=== PATIENT | male | born 1945 | race Caucasian/White ===

== ENCOUNTER 2016-08-08 18:04 | Inpatient (IN) | payer OTHER ==
[2016-08-08] MEDS ORDERED: NS 1,000 ML IV ONE ×2 (18:13→19:16)
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
[2016-08-08 18:47] LABS: % IMMATURE GRANULYOCYTES 2.6 % (0.0-1.1); ABSOLUTE IMMATURE GRANULOCYTES 0.24 10^3/uL (0.00-0.10); ADD DIFF? NO; ADD MORPH? NO; ADD SCAN? NO; ATYPICAL LYMPHOCYTE FLAG 0 (0-99); FRAGMENT RBC FLAG 0 (0-99); HEMATOCRIT 40.3 % (40.0-51.0); HEMOGLOBIN 13.5 g/dL (13.7-17.5); LEFT SHIFT FLG 20 (0-99); LIPEMIA HEMOLYSIS FLAG 80 (0-99); MEAN CELL HEMOGLOBIN 30.5 pg (27.9-34.1); MEAN CELL HEMOGLOBIN CONCENTR. 33.5 g/dL (32.4-36.7); MEAN PLATELET VOLUME 10.1 fL (8.7-11.7); PLATELET CLUMPS FLAG 0 (0-99); PLATELET COUNT 208 10^3/uL (150-400); RED BLOOD CELL COUNT 4.43 10^6/uL (4.40-6.38); RED CELL DISTRIBUTION WIDTH 13.1 % (11.5-15.2)
[2016-08-08 19:02] LABS: INR 0.99 (0.83-1.16)
[2016-08-08 19:03] LABS: APTT 27.8 SEC (23.0-38.0)
[2016-08-08 19:13] LABS: ANION GAP 6 mEq/L (8-16); CALCIUM 9.4 mg/dL (8.5-10.4); CARBON DIOXIDE 25 mEq/l (22-31); CHLORIDE 100 mEq/L (97-110); CREATININE 1.6 mg/dL (0.7-1.3); GLOMERULAR FILTRATION RATE 43; GLUCOSE 169 mg/dL (70-100); POTASSIUM 4.5 mEq/L (3.5-5.2); SODIUM 131 mEq/L (134-144)
[2016-08-08] MEDS ORDERED: fentaNYL 100 MCG/2 ML INJ ONE ×2 (19:48→21:40)
[2016-08-08] MEDS ORDERED: fentaNYL 100 MCG/2 ML INJ IVP ONE ×3 (19:56→21:59)
[2016-08-08] MEDS ORDERED: MIDAZOLAM 2 MG/2 ML VIAL ONE (21:25)
[2016-08-08] MEDS ORDERED: MIDAZOLAM 2 MG/2 ML VIAL IVP ONE (21:38)
[2016-08-08] MEDS ORDERED: ONDANSETRON 4 MG/2 ML VIAL IVP PRN (22:06)
[2016-08-08] MEDS ORDERED: ZOLPIDEM TARTRATE 5 MG TAB PO PRN (22:06)
[2016-08-08] MEDS ORDERED: ONDANSETRON DISINTEGRATING 4 MG TAB PO PRN (22:06)
[2016-08-08] MEDS ORDERED: ACETAMINOPHEN 325 MG TAB PO PRN (22:06)
[2016-08-08] MEDS ORDERED: Cevimeline Hcl [Evoxac] 30 MG PO PRN (22:19)
[2016-08-08] MEDS ORDERED: NALOXONE HCL 0.4 MG/ML INJ IVP PRN (22:19)
[2016-08-08] MEDS ORDERED: LR 1,000 ML IV SCH (22:30)
[2016-08-08] MEDS: HYDROmorphONE/DILAUDID 6 MG/30 ML PCA IV PRN (22:53)
[2016-08-08] MEDS: OXYCODONE/APAP 5/325 TAB PO PRN (22:53)
[2016-08-08] MEDS: KETOROLAC 15 MG/1 ML SDV IVP SCH (23:00)
[2016-08-08] MEDS ORDERED: D50W 25 GM/50 ML SYR IVP PRN (23:00)
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
[2016-08-08] MEDS: DIAZEPAM 5 MG TAB PO PRN (23:33)
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
[2016-08-09 04:23] LABS: % IMMATURE GRANULYOCYTES 0.7 % (0.0-1.1); ABSOLUTE IMMATURE GRANULOCYTES 0.09 10^3/uL (0.00-0.10); ADD DIFF? NO; ADD MORPH? NO; ADD SCAN? NO; ATYPICAL LYMPHOCYTE FLAG 0 (0-99); FRAGMENT RBC FLAG 0 (0-99); HEMATOCRIT 34.3 % (40.0-51.0); HEMOGLOBIN 11.3 g/dL (13.7-17.5); LEFT SHIFT FLG 10 (0-99); LIPEMIA HEMOLYSIS FLAG 80 (0-99); MEAN CELL HEMOGLOBIN 30.4 pg (27.9-34.1); MEAN CELL HEMOGLOBIN CONCENTR. 32.9 g/dL (32.4-36.7); MEAN CELL VOLUME 92.2 fL (81.5-99.8); MEAN PLATELET VOLUME 9.8 fL (8.7-11.7); PLATELET CLUMPS FLAG 10 (0-99); PLATELET COUNT 181 10^3/uL (150-400); RED BLOOD CELL COUNT 3.72 10^6/uL (4.40-6.38); RED CELL DISTRIBUTION WIDTH 13.3 % (11.5-15.2)
--- NOTE | 2016-08-09 04:24 | GOP ---
[f rep st] OPERATIVE REPORT DATE OF OPERATION: SURGEON: Luis Carlos Foley MD PREOPERATIVE DIAGNOSIS: Right pneumothorax and multiple right rib fractures. POSTOPERATIVE DIAGNOSIS: Right pneumothorax and multiple right rib fractures. PROCEDURE PERFORMED: Right tube thoracostomy with IV sedation. FINDINGS: DESCRIPTION OF PROCEDURE: The patient was consented. Appropriate time-out was done. He was preppe d and draped in usual sterile fashion using IV sedation with Versed and fentanyl. He was anesthetiz ed with 1% Xylocaine over the 6th intercostal space in the anterior axillary line. A short incision was made. Using blunt dissection, the 6th intercostal space was entered. This was done with 1% Xy locaine local infiltration. A #28-Vietnamese chest tube was introduced, after having released the pneum othorax. There was only a minimal amount of blood in the chest, approximately 50 cc. Chest tube wa s secured at the exit site with a 2-0 silk suture and connected to a Pleur-Evac drainage system. He tolerated the procedure reasonably well. There were no complications. He was taken to the recover y room in good condition. /[id number]/MODL
[2016-08-09 04:46] LABS: ANION GAP 5 mEq/L (8-16); CALCIUM 8.4 mg/dL (8.5-10.4); CARBON DIOXIDE 24 mEq/l (22-31); CHLORIDE 105 mEq/L (97-110); CREATININE 1.5 mg/dL (0.7-1.3); GLOMERULAR FILTRATION RATE 46; GLUCOSE 142 mg/dL (70-100); SODIUM 134 mEq/L (134-144)
[2016-08-09] MEDS: KETOROLAC 15 MG/1 ML SDV IVP SCH (05:35)
[2016-08-09] MEDS: DIAZEPAM 5 MG TAB PO PRN ×2 (06:07→20:18)
[2016-08-09] MEDS: OXYCODONE/APAP 5/325 TAB PO PRN ×2 (06:07→20:15)
[2016-08-09] MEDS ORDERED: INSULIN PUMP, PATIENT OWN 1 EA MISC SCH ×2 (07:45→10:00)
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
--- NOTE | 2016-08-09 08:36 | CPEKG ---
Heart Rate: 71 RR Interval: 845 P-R Interval: 304 QRSD Interval: 92 QT Interval: 328 QTC Interval: 357 P [place]: 36 QRS [place]: -24 T Wave [place]: 11 EKG Severity - ABNORMAL ECG - EKG Impression: SINUS RHYTHM EKG Impression: FIRST DEGREE AV BLOCK EKG Impression: BORDERLINE T WAVE ABNORMALITIES Electronically Signed By: Jagjit Swanson 09-Aug-2016 16:51:39
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
[2016-08-09 09:51] LABS: HEMOGLOBIN A1C 7.1 % (4.0-6.0)
[2016-08-09] MEDS ORDERED: HUMALOG PUMP SC PRN (10:00)
[2016-08-09] MEDS: MULTIVITAMINS 1 EACH TAB PO SCH (10:55)
[2016-08-09] MEDS: ENOXAPARIN 40 MG/0.4 ML SYR SC SCH (10:55)
[2016-08-09] MEDS: ASPIRIN/DIPYRIDAMOLE CAPSULE PO SCH ×2 (10:55→20:17)
[2016-08-09 14:12] LABS: % IMMATURE GRANULYOCYTES 0.6 % (0.0-1.1); ABSOLUTE IMMATURE GRANULOCYTES 0.08 10^3/uL (0.00-0.10); ADD DIFF? NO; ADD MORPH? NO; ADD SCAN? NO; ATYPICAL LYMPHOCYTE FLAG 0 (0-99); FRAGMENT RBC FLAG 0 (0-99); HEMATOCRIT 35.8 % (40.0-51.0); HEMOGLOBIN 11.6 g/dL (13.7-17.5); LEFT SHIFT FLG 10 (0-99); LIPEMIA HEMOLYSIS FLAG 80 (0-99); MEAN CELL HEMOGLOBIN 30.7 pg (27.9-34.1); MEAN CELL HEMOGLOBIN CONCENTR. 32.4 g/dL (32.4-36.7); MEAN CELL VOLUME 94.7 fL (81.5-99.8); PLATELET CLUMPS FLAG 10 (0-99); PLATELET COUNT 162 10^3/uL (150-400); RED BLOOD CELL COUNT 3.78 10^6/uL (4.40-6.38); RED CELL DISTRIBUTION WIDTH 13.6 % (11.5-15.2)
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
[2016-08-09 14:57] LABS: COLOR YELLOW; LEUKOCYTE ESTERASE,URINE NEGATIVE (NEGATIVE); NITRITE,URINE NEGATIVE (NEGATIVE)
[2016-08-09] MEDS ORDERED: Cevimeline Hcl [Evoxac] 30 MG PO PRN (19:20)
[2016-08-09] MEDS ORDERED: ESCITALOPRAM OXALATE 10 MG TAB PO SCH (21:00)
[2016-08-09] MEDS ORDERED: ATORVASTATIN CALCIUM 20 MG TAB PO SCH (21:00)
[2016-08-10] MEDS: HYDROmorphONE/DILAUDID 6 MG/30 ML PCA IV PRN (06:15)
[2016-08-10] MEDS: OXYCODONE/APAP 5/325 TAB PO PRN (07:17)
[2016-08-10 07:38] LABS: ANION GAP 2 mEq/L (8-16); CALCIUM 8.4 mg/dL (8.5-10.4); CARBON DIOXIDE 23 mEq/l (22-31); CHLORIDE 105 mEq/L (97-110); CREATININE 1.2 mg/dL (0.7-1.3); GLOMERULAR FILTRATION RATE 60; GLUCOSE 166 mg/dL (70-100); POTASSIUM 4.8 mEq/L (3.5-5.2); SODIUM 130 mEq/L (134-144)
[2016-08-10] MEDS: MULTIVITAMINS 1 EACH TAB PO SCH (10:00)
[2016-08-10] MEDS: TAPENTADOL HCL 50 MG TAB PO PRN ×2 (10:00→13:19)
[2016-08-10] MEDS: ENOXAPARIN 40 MG/0.4 ML SYR SC SCH (10:00)
[2016-08-10] MEDS: ASPIRIN/DIPYRIDAMOLE CAPSULE PO SCH (10:00)
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
[2016-08-10 13:06] VITALS: BP 132/47; PULSE 75; RESP 18; TEMP 98.7; O2SAT 95
[2016-08-10] MEDS: DIAZEPAM 5 MG TAB PO PRN (13:20)
== END 2016-08-10 13:35 | disposition short-term general hospital (02) | DRG 964 ==
LOC: EDUNIT# → F2N 22:27
PROVIDERS: ADMIT Surgery; ATTEND Surgery
PROC: 0W9930Z Drainage of Right Pleural Cavity with Drainage Device, Percutaneous Approach (ICD-10-PCS; principal; 2016-08-08)
DX: S06.9X1A Unspecified intracranial injury with loss of consciousness of 30 minutes or less, initial encounter (principal); S22.41XA Multiple fractures of ribs, right side, initial encounter for closed fracture; S27.0XXA Traumatic pneumothorax, initial encounter; S42.001A Fracture of unspecified part of right clavicle, initial encounter for closed fracture; S32.82XA Multiple fractures of pelvis without disruption of pelvic ring, initial encounter for closed fracture; S32.421A Displaced fracture of posterior wall of right acetabulum, initial encounter for closed fracture; S32.471A Displaced fracture of medial wall of right acetabulum, initial encounter for closed fracture; S32.601A Unspecified fracture of right ischium, initial encounter for closed fracture; S32.511A Fracture of superior rim of right pubis, initial encounter for closed fracture; S32.301A Unspecified fracture of right ilium, initial encounter for closed fracture; E11.9 Type 2 diabetes mellitus without complications; I10 Essential (primary) hypertension; Z96.41 Presence of insulin pump (external) (internal); V18.0XXA Pedal cycle driver injured in noncollision transport accident in nontraffic accident, initial encounter; Y93.55 Activity, bike riding; Y92.482 Bike path as the place of occurrence of the external cause
CPT/HCPCS: 82947-QW; 92523-GN; 96374; G0390; G9165-GN-CJ; G9166-GN-CH; J0690; J1170; J1650; J1885; J2250; J3010

== ENCOUNTER → 2016-10-21 | Outpatient (CLI) | payer OTHER | LOC: FIMAGING 09:30 | PROVIDERS: ATTEND Internal Medicine Rheumatology | DX: Z13.820 Encounter for screening for osteoporosis (principal); M81.0 Age-related osteoporosis without current pathological fracture; Z79.899 Other long term (current) drug therapy ==

== ENCOUNTER → 2016-12-21 | Outpatient (CLI) | payer OTHER ==
--- NOTE | 2016-12-21 13:18 | CPEKG ---
Heart Rate: 80 RR Interval: 750 P-R Interval: 280 QRSD Interval: 90 QT Interval: 380 QTC Interval: 439 P [place]: 62 QRS [place]: -27 T Wave [place]: 61 EKG Severity - ABNORMAL ECG - EKG Impression: SINUS RHYTHM EKG Impression: FIRST DEGREE AV BLOCK EKG Impression: Right ventricular conduction defect EKG Impression: Diffuse ST-T wave flattening-- But less than compared to August 09, 2016 Electronically Signed By: Macario Laws 21-Dec-2016 16:28:36
== END ==
LOC: FCP 13:02
DX: Z01.810 Encounter for preprocedural cardiovascular examination (principal); I44.0 Atrioventricular block, first degree
CPT/HCPCS: 82947-QW

== ENCOUNTER → 2016-12-21 | Outpatient (CLI) | payer OTHER | LOC: FIMAGING 13:40 | DX: Z01.811 Encounter for preprocedural respiratory examination (principal); S22.41XD Multiple fractures of ribs, right side, subsequent encounter for fracture with routine healing; S42.021K Displaced fracture of shaft of right clavicle, subsequent encounter for fracture with nonunion ==

== ENCOUNTER → 2017-02-06 | Outpatient (CLI) | payer OTHER | LOC: CIMAGING 09:03 | DX: M87.051 Idiopathic aseptic necrosis of right femur (principal) | CPT/HCPCS: 73700-PO ==

== ENCOUNTER → 2017-04-02 | Outpatient (CLI) | payer OTHER | LOC: FIMAGING 12:39 | PROVIDERS: ATTEND Nurse Practitioner Adult Health | DX: Z01.818 Encounter for other preprocedural examination (principal); J44.9 Chronic obstructive pulmonary disease, unspecified; M25.551 Pain in right hip ==

== ENCOUNTER 2017-05-05 16:19 | Emergency (ER) | payer OTHER ==
[2017-05-05 16:40] VITALS: TEMP 98.2
[2017-05-05 18:24] VITALS: BP 151/70; PULSE 70; RESP 16; O2SAT 93
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
== END 2017-05-05 19:11 | disposition home or self-care (01) ==
DX: S42.021A Displaced fracture of shaft of right clavicle, initial encounter for closed fracture (principal); I10 Essential (primary) hypertension; E10.9 Type 1 diabetes mellitus without complications; Z85.818 Personal history of malignant neoplasm of other sites of lip, oral cavity, and pharynx; Z87.891 Personal history of nicotine dependence; V18.0XXA Pedal cycle driver injured in noncollision transport accident in nontraffic accident, initial encounter; Y92.410 Unspecified street and highway as the place of occurrence of the external cause; Y99.8 Other external cause status; Y93.55 Activity, bike riding

== ENCOUNTER → 2017-05-22 | Outpatient (CLI) | payer OTHER ==
[~2017-05-22] MED LIST: IOPAMIDOL (ISOVUE 370) 100 ML BTL IV ONE
== END ==
LOC: FIMAGING 09:45
PROVIDERS: ATTEND Internal Medicine
DX: I65.23 Occlusion and stenosis of bilateral carotid arteries (principal)
CPT/HCPCS: 70498; Q9967

== ENCOUNTER → 2017-06-07 | Day surgery (SDC) | payer OTHER ==
[~2017-06-07] MED LIST changes: +ASCORBIC ACID 500 MG TAB PO SCH; +ATORVASTATIN CALCIUM 40 MG TAB PO SCH; +BACITRACIN 50,000 UNITS/10 ML SYR IRR ONE; +BUPIVACAINE/EPI 0.5% 30 ML SDV ONE; +Cevimeline Hcl [Evoxac] 30 MG PO SCH; +D50W 25 GM/50 ML SYR IVP PRN; +D50W 25 GM/50 ML VIAL IVP PRN; +D50W 25 GM/50 ML VIAL ONE; +DULoxetine 60 MG CAP PO SCH; +FERROUS SULFATE 325 MG TAB PO SCH; +HYDROCODONE/APAP 5/325 TAB PO PRN; +INSULIN PUMP, PATIENT OWN 1 EA MISC SCH; -IOPAMIDOL (ISOVUE 370) 100 ML BTL IV ONE; +LIDOCAINE 1% 2 ML INJ ID PRN; +LIDOCAINE 2% 5 ML SDV ONE; +LIDOCAINE 2% JELLY 5 ML TUBE ONE; +LR 1,000 ML IV ONE; +LR 1,000 ML IV SCH; +LR 500 ML IV PRN; +NALOXONE HCL 0.4 MG/ML INJ IVP PRN; +NON-FORMULARY NEW DRUG (Insulin Pump, Patient Own 1 EA) MISC SCH; +ONDANSETRON 4 MG/2 ML VIAL IVP PRN; +ONDANSETRON 4 MG/2 ML VIAL ONE; +ONDANSETRON DISINTEGRATING 4 MG TAB PO PRN; +POLYMYXIN B SULFATE 500,000 UNIT/10 ML SYR IRR ONE; +PROMETHAZINE HCL 25 MG/ML INJ IVP PRN; +PROPOFOL 200 MG/20 ML VIAL ONE; +TRAVOPROST Z 0.004% 2.5 ML OPHT.BTL EACHEYE SCH; +ceFAZolin 2 GM/SWFI 2 GM/20 ML SYR IVP ONE; +fentaNYL 100 MCG/2 ML INJ IVP PRN; +fentaNYL 250 MCG/5 ML INJ ONE; +oxyCODONE IR 5 MG TAB PO PRN
--- NOTE | 2017-06-07 14:03 | PDHPUP ---
History & Physical Update H&P update statement: This history and physical update is based on an assessment of the patient which was completed after admission or registration (within 24 hours), but prior to the surgery/procedure. H&P update: no change in patient's condition since H&P completed (Patient seen/ examined in conjunction with Dr. Ross. )
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
--- NOTE | 2017-06-07 18:23 | POSTOPPROG ---
Post Op Note Date of Operation: 06/07/17 Surgeon: Ketih Ross Vaccinator: BASIM Gagnon Anesthesiologist: Madeleine Anesthesia: GET(General Endotracheal) Pre-op Diagnosis: R clavicle nonunion Post-op Diagnosis: same Procedure: Nonunion takedown, osteotomy and ORIF R clavicle with local bone autograft Inf/Abcess present in the surg proc area at time of surgery?: No EBL: 50-100 (50cc) Complications: none
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
[2017-06-07 21:14] VITALS: BP 126/62
== END | disposition home or self-care (01) ==
LOC: UNDOADMOB 11:57 → F3E 11:57 → INTOOBSV 11:57 → FSGY 11:57 → EDSTATUS 14:15 → F3E 15:28 → F3N 15:28
PROVIDERS: ATTEND Orthopaedic Surgery
PROC: 0P8 Upper Bones, Division (ICD-10-PCS; principal; 2017-06-07 14:15)
DX: S42.021K Displaced fracture of shaft of right clavicle, subsequent encounter for fracture with nonunion (principal); E11.9 Type 2 diabetes mellitus without complications; E78.5 Hyperlipidemia, unspecified; Z86.73 Personal history of transient ischemic attack (TIA), and cerebral infarction without residual deficits; Z85.810 Personal history of malignant neoplasm of tongue; Z91.81 History of falling; Z87.891 Personal history of nicotine dependence; Z79.4 Long term (current) use of insulin
CPT/HCPCS: C1713; J0690; J2405; J2704; J3010